=== PATIENT | female | born 1970 | race Caucasian/White ===

== ENCOUNTER 2016-07-21 17:11 | Emergency (ER) | payer OTHER | END 2016-07-21 18:30 | disposition left against medical advice (07) | LOC: ER 17:11 | DX: R41.82 Altered mental status, unspecified (principal); F15.10 Other stimulant abuse, uncomplicated; B35.8 Other dermatophytoses; I10 Essential (primary) hypertension; F17.210 Nicotine dependence, cigarettes, uncomplicated; Z90.49 Acquired absence of other specified parts of digestive tract; Z90.710 Acquired absence of both cervix and uterus; Z88.5 Allergy status to narcotic agent | CPT/HCPCS: 36415; 80307 ==